=== PATIENT | female | born 1960 | race Caucasian/White ===

== ENCOUNTER → 2020-07-22 | Outpatient (CLI) | payer MEDICAID ==
[~2020-07-22] MED LIST: BIFI4CAP PO; DICY20TA4 PO; MULT-717 PO; UMEC1DIS INH; prebiotic PO
== END | disposition home or self-care (01) ==
LOC: STAR 11:07
PROVIDERS: ATTEND Otolaryngology
DX: Z01.812 Encounter for preprocedural laboratory examination (principal); Z20.822 Contact with and (suspected) exposure to COVID-19; R22.1 Localized swelling, mass and lump, neck; J31.1 Chronic nasopharyngitis
CPT/HCPCS: 93005; U0003

== ENCOUNTER 2020-07-28 05:53 | Day surgery (SDC) | payer MEDICAID ==
[~2020-07-28] VITALS: Ht 160 cm; Wt 51.0 kg
[2020-07-28] MEDS ORDERED: CHLORHEXIDINE 15 ML UDC ONE (06:42)
[2020-07-28 06:43] VITALS: BP 92/55
[2020-07-28] MEDS ORDERED: EPINEPHRINE TOPICAL SOLN 1 MG/ML, 30ML ONE (06:45)
[2020-07-28] MEDS ORDERED: LIDOCAINE JELLY 2%, 30GM ONE (06:46)
[2020-07-28] MEDS ORDERED: EPINEPHRINE 1 MG/ML, 1ML ONE (06:46)
[2020-07-28] MEDS ORDERED: OXYMETAZOLINE NASAL SPRAY 0.05%,30ML ONE (06:53)
[2020-07-28] MEDS ORDERED: MIDAZOLAM 1 MG/ML, 2ML ONE (06:57)
[2020-07-28] MEDS ORDERED: FENTANYL PF 100 MCG/2ML ONE (06:58)
[2020-07-28] MEDS ORDERED: CHLORHEXIDINE 15 ML UDC PO ONE (07:00)
[2020-07-28] MEDS ORDERED: LACTATED RINGERS 1,000 ML IV SCH (07:00)
[2020-07-28] MEDS ORDERED: HALOPERIDOL 5 MG/ML IV PRN (07:30)
[2020-07-28] MEDS ORDERED: MEPERIDINE/PF 25MG/0.5ML IVPush PRN (07:30)
[2020-07-28] MEDS ORDERED: OXYcodone 5 MG/5 ML ORAL.SOL UDC PO PRN (07:30)
[2020-07-28] MEDS ORDERED: ALBUTEROL/IPRATROPIUM 2.5MG/0.5MG, 3 ML NPPB PRN (07:30)
[2020-07-28] MEDS ORDERED: DIAZEPAM 5 MG/ML, 2ML IVPush PRN (07:30)
[2020-07-28] MEDS ORDERED: EPHEDRINE 50 MG/ML, 1ML IVPush PRN (07:30)
[2020-07-28] MEDS ORDERED: LABETALOL 5MG/ML, 20ML IV PRN (07:30)
[2020-07-28] MEDS ORDERED: METOPROLOL 1 MG/ML, 5ML IV PRN (07:30)
[2020-07-28] MEDS ORDERED: HYDROmorphone 1 MG/ML, 1ML INJ IVPush PRN (07:30)
[2020-07-28] MEDS ORDERED: PROMETHAZINE 25 MG/ML, 1ML IVPush PRN (07:30)
[2020-07-28] MEDS ORDERED: ONDANSETRON 2MG/ML, 2ML IVPush PRN (07:30)
[2020-07-28] MEDS ORDERED: KETOROLAC 30 MG/1 ML IV PRN (07:30)
[2020-07-28] MEDS ORDERED: DIPHENHYDRAMINE 50 MG/ML, 1ML IVPush PRN (07:30)
[2020-07-28] MEDS ORDERED: FENTANYL PF 100 MCG/2ML IV PRN (07:30)
[2020-07-28] MEDS ORDERED: ACETAMINOPHEN 325 MG TABLET PO PRN (07:30)
[2020-07-28] MEDS ORDERED: ALBUTEROL SULFATE 2.5 MG/3 ML NPPB PRN (07:30)
[2020-07-28] MEDS ORDERED: hydrALAzine 20 MG/ML, 1ML IV PRN (07:30)
== END 2020-07-28 10:00 | disposition home or self-care (01) ==
LOC: OUT 05:53
PROVIDERS: ATTEND Otolaryngology
DX: J39.2 Other diseases of pharynx (principal); R93.5 Abnormal findings on diagnostic imaging of other abdominal regions, including retroperitoneum; J44.9 Chronic obstructive pulmonary disease, unspecified; Z87.891 Personal history of nicotine dependence
CPT/HCPCS: 30930; 31237; 31535; 88305; 88341; 88342; J2250; J3010; J7120; J0171